=== PATIENT | female | born 1985 | race Two or more races ===

== ENCOUNTER 2018-04-20 17:53 | Emergency (ER) | payer MEDICAID, OTHER ==
[~2018-04-20] VITALS: Ht 167.6 cm; Wt 61.2 kg
[2018-04-20] MEDS ORDERED: LAMICTAL XR50 MG ORAL ×2 (18:04→18:41)
[2018-04-20 18:24] VITALS: BP 125/80
--- NOTE | 2018-04-20 18:39 | Emergency Room Report ---
History of Present Illness General Chief Complaint: Medication Refill Source: Patient Present Illness HPI 32-year-old female presents emergency department complaining of running out of her antiseizure and migraine medications. Patient states that she took her last dosage of antiseizure medication today. Patient states that she has not had a seizure in over 2 years. Patient states that she intermittently switches between Excedrin Migraine and Tylenol when she does have headaches. Patient states she currently does not have any pain. Patient denies weakness, numbness , tingling, visual or auditory aura at the moment. Patient states that her next appointment with her primary care provider is not until May and will require refill until then. Patient History Past Medical History: see triage record, seizures, other - migranes Past Surgical History: none Pertinent Family History: none Last Menstrual Period: 03/15/18 Now: No Reviewed Nursing Documentation: PMH: Agreed; PSxH: Agreed Nursing Documentation-PMH Hx Seizures: Yes - Migraines Review of Systems All Other Systems: negative except mentioned in HPI Physical Exam Vital Signs Date Time Temp Pulse Resp B/P (MAP) Pulse Ox O2 Delivery O2 Flow Rate FiO2 04/20/18 18:00 98.0 65 16 125/80 97 Room Air 98.1 Sp02 EP Interpretation: reviewed, normal General Appearance: no apparent distress, alert, GCS 15, non-toxic Head: normocephalic, atraumatic Eyes: bilateral eye normal inspection, bilateral eye PERRL ENT: hearing grossly normal, normal voice Neck: full range of motion Respiratory: lungs clear, normal breath sounds, speaking full sentences Cardiovascular #1: regular rate, rhythm Musculoskeletal: back normal, gait/station normal, normal range of motion Neurologic: alert, oriented x3, responsive, motor strength/tone normal, sensory intact, normal gait, speech normal, grossly normal Psychiatric: judgement/insight normal Skin: normal color, no rash, warm/dry, well hydrated Medical Decision Making PA Attestation Dr Kingston is my supervising Physician whom patient management has been discussed with. Diagnostic Impression: Primary Impression: Encounter for medication refill ER Course Pt. presents to the ED c/o running out of her medication and her soonest appt. with her pcp is end of May Ddx considered but are not limited to: drug seeking, OD, Seizure, migraine Vital signs: are WNL, pt. is afebrile H&PE are most consistent with need for medication refill no emergent condition at this time. - neurological symptoms or deficits noted. ORDERS: none required at this time, the diagnosis is clinical ED INTERVENTIONS: None required at this time. DISCHARGE: At this time pt. is stable for d/c to home. Will provide printed patient care instructions, and any necessary prescriptions. Care plan and follow up instructions have been discussed with the patient prior to discharge. Last Vital Signs Date Time Temp Pulse Resp B/P (MAP) Pulse Ox O2 Delivery O2 Flow Rate FiO2 04/20/18 18:24 98.1 78 16 125/80 97 Room Air 98.1 Disposition: HOME, SELF-CARE Condition: Stable Scripts Aspirin/Acetaminophen/Caffeine (EXCEDRIN MIGRAINE GELTAB) 1 Each Tablet 1 EACH PO Q6HR, #20 TAB Prov: Latesha Cervantes 04/20/18 Acetaminophen* (TYLENOL EXTRA STRENGTH*) 500 Mg Tablet 500 MG ORAL Q6H PRN for Mild Pain/Temp > 100.5, #30 TAB 0 Refills Prov: Latesha Cervantes 04/20/18 Lamotrigine (LAMICTAL XR) 50 Mg Tab.er.24 50 MG ORAL DAILY, #30 TAB 1 Refill Prov: Latesha Cervantes 04/20/18 Patient Instructions: Medicine Refill at the Emergency Department Additional Instructions: Take medications as directed. Follow up with a Primary Care Provider in 3-5 days, even if your symptoms have resolved. Return sooner to ED if new symptoms occur, or current symptoms become worse. - Please note that this Emergency Department Report was dictated using [employer] out operator technology software, occasionally this can lead to erroneous entry secondary to interpretation by the dictation equipment. Latesha Cervantes Apr 20, 2018 18:39
[2018-04-20] MEDS ORDERED: EXCEDRIN MIGRA1 EACH PO (18:41)
[2018-04-20] MEDS ORDERED: TYLENOL EXTRA500 MG ORAL (18:41)
[2018-04-20 18:54] VITALS: BP 125/80
== END 2018-04-20 18:57 | disposition home or self-care (01) ==
LOC: EMR 18:57
DX: R56.9 Unspecified convulsions (principal); Z76.0 Encounter for issue of repeat prescription
CPT/HCPCS: 99284

== ENCOUNTER 2018-05-08 16:55 | Emergency (ER) | payer OTHER ==
[~2018-05-08] VITALS: Ht 167.6 cm; Wt 62.6 kg
[~2018-05-08 16:55] MED LIST: EXCEDRIN MIGRA1 EACH PO; LAMICTAL XR50 MG ORAL; TYLENOL EXTRA500 MG ORAL
[2018-05-08 17:15] VITALS: BP 112/68
--- NOTE | 2018-05-08 17:37 | Emergency Room Report ---
History of Present Illness General Chief Complaint: Medication Refill Source: Patient Present Illness HPI 32-year-old female presents to the emergency department requesting medication refill for Lomotrigine. Patient reports that she takes this medication daily to prevent seizures that she is diagnosed with epilepsy. Patient denies recent seizure she reports her os recent seizure was 2 years ago. Patient states she has an appointment with her doctor in 2 weeks and just needs enough medication until then. Denies pain, fevers, chills, CP, or SOB. Allergies: Coded Allergies: No Known Allergies (Unverified , 05/08/18) Patient History Past Medical History: see triage record, seizures Past Surgical History: none Pertinent Family History: none Last Menstrual Period: 04/16/18 Now: No Reviewed Nursing Documentation: PMH: Agreed; PSxH: Agreed Nursing Documentation-PMH Past Medical History: No History, Except For Hx Seizures: Yes Review of Systems All Other Systems: negative except mentioned in HPI Physical Exam Vital Signs Date Time Temp Pulse Resp B/P (MAP) Pulse Ox O2 Delivery O2 Flow Rate FiO2 05/08/18 16:58 98.2 58 18 112/68 99 Room Air 98.2 Sp02 EP Interpretation: reviewed, normal General Appearance: no apparent distress, alert, GCS 15, non-toxic Head: normocephalic, atraumatic Eyes: bilateral eye normal inspection, bilateral eye PERRL ENT: hearing grossly normal, normal voice Neck: full range of motion Respiratory: lungs clear, normal breath sounds, speaking full sentences Cardiovascular #1: regular rate, rhythm Musculoskeletal: back normal, gait/station normal, normal range of motion, non- tender Neurologic: alert, oriented x3, responsive, motor strength/tone normal, sensory intact, normal gait, speech normal, grossly normal Psychiatric: judgement/insight normal Skin: normal color, no rash, warm/dry, well hydrated Lymphatic: no adenopathy Medical Decision Making PA Attestation Dr. Ramriez is my supervising Physician whom patient management has been discussed with. Diagnostic Impression: Primary Impression: Encounter for medication refill ER Course 32-year-old female presents to the emergency department requesting medication refill for Lomotrigine. Patient reports that she takes this medication daily to prevent seizures that she is diagnosed with epilepsy. Patient denies recent seizure she reports her os recent seizure was 2 years ago. Patient states she has an appointment with her doctor in 2 weeks and just needs enough medication until then. Denies pain, fevers, chills, CP, or SOB. Ddx considered but are not limited to: drug seeking, OD, need for urgent medication refill, seizure Vital signs: are WNL, pt. is afebrile H&PE are most consistent with need for medication refill. ORDERS: none required at this time, the diagnosis is clinical ED INTERVENTIONS: None required at this time. DISCHARGE: At this time pt. is stable for d/c to home. Will provide printed patient care instructions, and any necessary prescriptions. Care plan and follow up instructions have been discussed with the patient prior to discharge. Last Vital Signs Date Time Temp Pulse Resp B/P (MAP) Pulse Ox O2 Delivery O2 Flow Rate FiO2 05/08/18 17:15 98.2 84 18 112/68 99 Room Air 98.2 Disposition: HOME, SELF-CARE Condition: Stable Scripts Lamotrigine (LAMOTRIGINE) 50 Mg Tab.er.24 50 MG ORAL BID, #30 TAB 0 Refills Prov: Latesha Cervantes 05/08/18 Referrals: [facility] (PCP) Patient Instructions: Medicine Refill at the Emergency Department Additional Instructions: Take medications as directed. Follow up with a Primary Care Provider in 3-5 days, even if your symptoms have resolved. --Please review list of primary care clinics, if you do not already have a primary care provider Return sooner to ED if new symptoms occur, or current symptoms become worse. - Please note that this Emergency Department Report was dictated using [employer] advisor technology software, occasionally this can lead to erroneous entry secondary to interpretation by the dictation equipment. Latesha Cervantes May 08, 2018 17:37
[2018-05-08] MEDS ORDERED: LAMOTRIGINE50 MG ORAL (17:44)
[2018-05-08 18:07] VITALS: BP 104/59
== END 2018-05-08 18:07 | disposition home or self-care (01) ==
LOC: EMR 17:15
DX: Z76.0 Encounter for issue of repeat prescription (principal); G40.909 Epilepsy, unspecified, not intractable, without status epilepticus
CPT/HCPCS: 99282

== ENCOUNTER 2018-06-08 17:58 | Emergency (ER) | payer OTHER ==
[~2018-06-08] VITALS: Ht 167.6 cm; Wt 62.6 kg
[~2018-06-08 17:58] MED LIST changes: +LAMOTRIGINE50 MG ORAL
[2018-06-08 18:02] VITALS: BP 110/72
--- NOTE | 2018-06-08 18:10 | Emergency Room Report ---
History of Present Illness General Chief Complaint: Medication Refill Source: Patient Present Illness HPI 32-year-old female presents to the emergency department requesting medication refill for lamotrigine 50 mg extended release. Patient notes that she just ran out of her medication. Patient states that she takes her medication for seizure disorder. Patient denies having any recent seizures. Patient reports that she has an appointment with her primary care doctor next Friday. denies SHEETS , dizziness, N/V, Fevers or chills. Allergies: Coded Allergies: No Known Allergies (Unverified , 05/08/18) Patient History Past Medical History: see triage record, psych hx Past Surgical History: none Pertinent Family History: none Last Menstrual Period: 04/19/18 Reviewed Nursing Documentation: PMH: Agreed; PSxH: Agreed Nursing Documentation-PMH Past Medical History: No History, Except For Hx Seizures: Yes Review of Systems All Other Systems: negative except mentioned in HPI Physical Exam Vital Signs Date Time Temp Pulse Resp B/P (MAP) Pulse Ox O2 Delivery O2 Flow Rate FiO2 06/08/18 18:02 98.6 60 18 110/72 100 Room Air 98.6 Sp02 EP Interpretation: reviewed, normal General Appearance: no apparent distress, alert, GCS 15, non-toxic Head: normocephalic, atraumatic Eyes: bilateral eye normal inspection, bilateral eye PERRL ENT: hearing grossly normal, normal voice Neck: full range of motion Respiratory: lungs clear, normal breath sounds, speaking full sentences Cardiovascular #1: regular rate, rhythm Musculoskeletal: back normal, gait/station normal, normal range of motion, non- tender Neurologic: alert, oriented x3, responsive, motor strength/tone normal, sensory intact, normal gait, speech normal, grossly normal Psychiatric: judgement/insight normal Skin: normal color, no rash, warm/dry, well hydrated Medical Decision Making PA Attestation Dr. vasques is my supervising Physician whom patient management has been discussed with. Diagnostic Impression: Primary Impression: Encounter for medication refill ER Course 32-year-old female presents to the emergency department requesting medication refill for lamotrigine 50 mg extended release. Patient notes that she just ran out of her medication. Patient states that she takes her medication for seizure disorder. Patient denies having any recent seizures. Patient reports that she has an appointment with her primary care doctor next Friday. denies SHEETS , dizziness, N/V, Fevers or chills. Ddx considered but are not limited to: drug seeking, OD, need for urgent medication refill. Vital signs: are WNL, pt. is afebrile H&PE are most consistent with need for medication refill. - normal MSE PE. ORDERS: none required at this time, the diagnosis is clinical ED INTERVENTIONS: None required at this time. DISCHARGE: At this time pt. is stable for d/c to home. Will provide printed patient care instructions, and any necessary prescriptions. Care plan and follow up instructions have been discussed with the patient prior to discharge. Last Vital Signs Date Time Temp Pulse Resp B/P (MAP) Pulse Ox O2 Delivery O2 Flow Rate FiO2 06/08/18 18:02 98.6 60 18 110/72 100 Room Air 98.6 Disposition: HOME, SELF-CARE Condition: Stable Scripts Lamotrigine (LAMOTRIGINE) 50 Mg Tab.er.24 50 MG ORAL DAILY, #15 TAB 0 Refills Prov: Latesha Cervantes 06/08/18 Patient Instructions: Medicine Refill at the Emergency Department Additional Instructions: Take medications as directed. Follow up with a Primary Care Provider in 3-5 days, even if your symptoms have resolved. --Please review list of primary care clinics, if you do not already have a primary care provider Return sooner to ED if new symptoms occur, or current symptoms become worse. - Please note that this Emergency Department Report was dictated using [employer] technology software, occasionally this can lead to erroneous entry secondary to interpretation by the dictation equipment. Latesha Cervantes Jun 08, 2018 18:10
[2018-06-08] MEDS ORDERED: LAMOTRIGINE50 MG ORAL (18:13)
[2018-06-08 18:20] VITALS: BP 110/72
== END 2018-06-08 18:22 | disposition home or self-care (01) ==
LOC: EMR 18:18
DX: Z76.0 Encounter for issue of repeat prescription (principal); G40.909 Epilepsy, unspecified, not intractable, without status epilepticus
CPT/HCPCS: 99282